=== PATIENT | female | born 1995 | race Caucasian/White ===

== ENCOUNTER 2019-03-25 19:30 | Emergency (ER) | payer SELFPAY ==
[~2019-03-25] VITALS: Ht 160 cm; Wt 98.9 kg
[2019-03-25 19:32] VITALS: BP 140/73
--- NOTE | 2019-03-25 19:40 | NUR ---
PT AMBULATED TO LOBBY WITH VSS.
--- NOTE | 2019-03-25 20:31 | NUR ---
PT AMBULATED TO BED
[2019-03-25 20:40] LABS: BASOPHILS % (AUTO) 0.4 % (0.0-2.0); EOSINOPHILS # (AUTO) 0.2 K/uL (0-0.4); EOSINOPHILS % (AUTO) 1.7 % (0.0-4.0); HEMATOCRIT 38.4 % (36-48); HEMOGLOBIN 12.8 g/dL (12.0-16.0); LYMPHOCYTES # (AUTO) 2.6 K/uL (2.5-16.5); MEAN CORPUSCULAR HEMOGLOBIN 28 pg (27-31); MEAN CORPUSCULAR HGB CONC 33 g/dL (33-37); MEAN CORPUSCULAR VOLUME 83.3 fL (80-94); MONOCYTES # (AUTO) 0.6 K/uL (0.8-1.0); MONOCYTES % (AUTO) 5.4 % (1.7-9.3); NEUTROPHILS # (AUTO) 7.4 K/uL (1.8-7.7); NEUTROPHILS % (AUTO) 68.5 % (42.2-75.2); PLATELET COUNT (AUTO) 277 K/uL (140-450); RED BLOOD CELL COUNT(AUTO) 4.61 MIL/uL (4.20-5.40); RED CELL DISTRIBUTION WIDTH 15.3 % (11.6-13.7); WHITE BLOOD COUNT (AUTO) 10.8 K/uL (4.8-10.8)
--- NOTE | 2019-03-25 20:42 | NUR ---
ULTRASOUND AT BEDSIDE.
[2019-03-25 20:43] LABS: APPEARANCE,URINE SL CLOUDY (CLEAR); BILIRUBIN,URINE NEGATIVE (NEGATIVE); BLOOD, URINE 3+ (NEGATIVE); COLOR,URINE RED (YELLOW); LEUKOCYTE ESTERASE ,URINE TRACE (NEGATIVE); NITRITE, URINE POSITIVE (NEGATIVE); PH,URINE 5.5 (5.0-9.0); UGLUCOSE NEGATIVE (NEGATIVE)
[2019-03-25 20:49] LABS: RBC,URINE TOO NUMEROUS TO COUN /HPF (0-5); WBC,URINE 80-100 /HPF (0-5)
--- NOTE | 2019-03-25 20:50 | NUR ---
23 Y/O FEMALE C/O MILD ABDOMINAL CRAMPING. SHE IS 7 WEEKS , INTERMINTENT SPOTTING FOR 3 WEEEK. SPOTTING INCRESED WITH SMALL TO MEDIUM CLOTS NOTED TODAY. LPM 7, . A/O X4, CLEAR SPEECH. NO EDEMA NOTED; PULSES +2; ABDOMINAL SOUNDS HEARD ON ALL FOUR QUADRANTS. PATIENT STATES THAT SHE EXPERIENCES NAUSEA AND VOMITING. ERMD AWARE OF STATUS. SIDE RAILS+1; SPOUSE AT BEDSIDE. PLACED ON MONITOR. ALLERIGIES;ADVIL, TYLENOL, ATIVAN DENIES PH
--- NOTE | 2019-03-25 21:32 | NUR ---
Dr. Cook examinig patient.
[2019-03-25 23:15] VITALS: BP 136/96
--- NOTE | 2019-03-25 23:15 | NUR ---
Patient discharged with v/s stable. Written and verbal after care instructions given and explained. Patient verbalized understanding. Ambulatory with steady gait. All questions addressed prior to discharge. Advised to follow up with PMD.
== END 2019-03-25 23:15 | disposition home or self-care (01) ==
LOC: MED 19:30
DX: O20.0 Threatened abortion (principal); Z3A.01 Less than 8 weeks gestation of pregnancy; Z88.6 Allergy status to analgesic agent; Z88.8 Allergy status to other drugs, medicaments and biological substances
CPT/HCPCS: 36415; 76817; 81001; 81025; 84702; 85025; 86900; 86901; 87086; 99284; Q0092

== ENCOUNTER 2020-05-26 15:15 | Emergency (ER) | payer MEDICAID ==
[~2020-05-26] VITALS: Ht 162.6 cm; Wt 105.2 kg
[2020-05-26 15:21] VITALS: BP 106/67
--- NOTE | 2020-05-26 15:35 | NUR ---
25 YEAR OLD FEMALE COMPLAINS OF LOWER ABDOMINAL TENDERNESS X 2 DAYS. PT DENIES BURNING ON URINATION, BUT STATES THAT SHE TOOK A UTI TEST AT HOME AND CAME BACK POSITIVE. PT DENIES BLOOD IN URINE. PT AOX4, BREATHING EVEN AND UNLABORED, SKIN WARM AND DRY. BED IN LOWEST POSITION, LOCKED, BED RAIL UPX1. PMH - DENIES ALLERGIES - IBUPROFEN, ADVIL
[2020-05-26 15:39] LABS: APPEARANCE,URINE CLEAR (CLEAR); BILIRUBIN,URINE NEGATIVE (NEGATIVE); BLOOD, URINE NEGATIVE (NEGATIVE); COLOR,URINE YELLOW (YELLOW); LEUKOCYTE ESTERASE ,URINE NEGATIVE (NEGATIVE); NITRITE, URINE NEGATIVE (NEGATIVE); PH,URINE 6.5 (5.0-9.0); UGLUCOSE NEGATIVE (NEGATIVE)
--- NOTE | 2020-05-26 16:08 | NUR ---
wet mount culture sent to lab
--- NOTE | 2020-05-26 17:20 | NUR ---
Patient discharged with v/s stable. Written and verbal after care instructions about bacterial vaginosis given and explained. Patient alert, oriented and verbalized understanding of instructions. Ambulatory with steady gait. All questions addressed prior to discharge. ID band removed. Patient advised to follow up with PMD. Rx of metronidazole, tylenol given. Patient educated on indication of medication including possible reaction and side effects. Opportunity to ask questions provided and answered.
[2020-05-26 17:58] VITALS: BP 106/67
[2020-05-30 06:07] LABS: CHLAMYDIA TRACHOMATIS AMP DNA Negative (Negative)
== END 2020-05-26 17:20 | disposition home or self-care (01) ==
LOC: MED 15:15
DX: N76.0 Acute vaginitis (principal); Z88.6 Allergy status to analgesic agent; Z88.8 Allergy status to other drugs, medicaments and biological substances
CPT/HCPCS: 36415; 81003; 81025; 87086; 87210; 87491; 99283

== ENCOUNTER 2021-05-22 15:47 | Emergency (ER) | payer BC, MEDICAID ==
[~2021-05-22] VITALS: Ht 160 cm; Wt 108.9 kg
[2021-05-22 15:54] VITALS: BP 156/72
[2021-05-22 16:26] VITALS: BP 156/72
--- NOTE | 2021-05-22 16:26 | NUR ---
26/F (0020) BIB SELF WITH C/O LEFT SIDE AND LEFT LOWER BACK PAIN X 1 DAY. DENIES INJURY OR TRAUMA, BUT STATES THAT SHE HAS HAD 2 MISCARRIAGES AT 8 WEEKS AOG. PT STATES SHE HAD A POSITIVE HOME TEST YESTERDAY. DENIES ABDOMINAL CRAMPING, VAGINAL BLEEDING, N/V/D, OR URINARY SYMPTOMS. IN ED, VSS. CLEAR BREATH SOUNDS. ABDOMEN SOFT, NONTENDER. CHANGED TO HOSPITAL GOWN. ERMD MADE AWARE OF PT STATUS. MEDHX: DENIES ALLERGIES: ACETAMINOPHEN, IBUPROFEN
--- NOTE | 2021-05-22 18:20 | NUR ---
PATIENT LEFT WITHOUT BEING SEEN BY DR. WILKS. NO FURTHER CARE PROVIDED FOR PATIENT.
== END 2021-05-22 18:20 | disposition left against medical advice (07) ==
LOC: MED 15:47
DX: M54.50 Low back pain, unspecified (principal); Z53.21 Procedure and treatment not carried out due to patient leaving prior to being seen by health care provider
CPT/HCPCS: 81002

== ENCOUNTER 2021-06-19 11:20 | Emergency (ER) | payer BC, MEDICAID ==
--- NOTE | 2021-06-19 11:34 | NUR ---
CALLEDX1. NO SHOW.
--- NOTE | 2021-06-19 12:08 | NUR ---
PATIENT LEFT WITHOUT BEING SEEN BY DR. WILKS. NO FURTHER CARE PROVIDED FOR PATIENT.
--- NOTE | 2021-06-19 12:08 | NUR ---
ATTEMPTED TO CALL PT A SECOND TIME, NO ANSWER.
== END 2021-06-19 12:08 | disposition left against medical advice (07) ==
LOC: MED 11:20
DX: Z53.21 Procedure and treatment not carried out due to patient leaving prior to being seen by health care provider (principal)